=== PATIENT | female | born 1985 | race Caucasian/White ===

== ENCOUNTER → 2016-06-11 | Outpatient (CLI) | payer OTHER ==
--- NOTE | 2016-06-11 11:29 | REP ---
Clinical: Sciatica . Technique: AP, lateral, bilateral oblique, and coned-down views. Findings: Alignment and lordosis is maintained. The vertebral bodies including transverse process and spinous processes are intact and normal. There is no evidence for acute fracture / compression injury or subluxation. No evidence for spondylolysis or spondylolisthesis. No significant degenerative change is noted. Impression: Normal age appropriate lumbosacral spine radiograph series. Signed by Jose Frank MD 06/11/2016 11:21 A
== END ==
LOC: M WUC 10:55
PROVIDERS: ATTEND Physician Assistant
DX: M54.30 Sciatica, unspecified side (principal)